=== PATIENT | female | born 1960 | race Caucasian/White ===

== ENCOUNTER 2017-03-06 08:13 | Day surgery (SDC) | payer BC ==
[~2017-03-06] VITALS: Ht 170.2 cm; Wt 97.9 kg
[2017-03-06 09:39] VITALS: Ht 170.2 cm; Wt 97.9 kg
[2017-03-06] MEDS ORDERED: MORP1CAP16 PO (09:51)
[2017-03-06] MEDS ORDERED: MUSCLE RELAXER (09:51)
[2017-03-06] MEDS ORDERED: PROPOFOL 60 ML ONE (10:05)
[2017-03-06] MEDS ORDERED: MIDAZOLAM 1 MG/ML 2 ML INJ ONE (10:06)
[2017-03-06 10:07] VITALS: BP 136/89; PULSE 52; RESP 14
--- NOTE | 2017-03-06 11:01 | GILP ---
DATE OF PROCEDURE: 03/06/2017 PROCEDURE: Screening colonoscopy. PREOPERATIVE DIAGNOSIS: Screening colonoscopy to rule out colon polyps. POSTOPERATIVE DIAGNOSES: Poor preparation, polyps cannot be excluded. DESCRIPTION OF PROCEDURE: After the informed written consent was obtained, the patient was asked to lie on the left lateral side. Intravenous anesthesia was given by anesthesiologist, Dr. Burnett. When the patient became somnolent, the Olympus video colonoscope was introduced into the rectum and scope was advanced all the way to the hepatic flexure. Because of the solid stool scope could not be advanced to the cecum and because of this the scope was withdrawn and the procedure was terminate d. PLAN: Recommend repeat colonoscopy a couple of months. Dictated By: ABDULLAHI FLOREZ/CATHY Conf#: [id number] DID#: [id number] CC: ABDULLAHI YOUNG MD; ;*EndCC*
--- NOTE | 2017-03-06 11:17 | GILP ---
DATE OF PROCEDURE: PROCEDURE: Esophagogastroduodenoscopy. PREOPERATIVE DIAGNOSIS: Patient presenting with history of having melenic stool and she also has go t arthritis, rule out peptic ulcer disease, gastritis, arteriovenous malformation, etc. POSTOPERATIVE DIAGNOSES: 1. Superficial nodular gastritis consistent with H. pylori infection. 2. Mild reflux esophagitis. 3. Mild duodenitis. DESCRIPTION OF PROCEDURE: After informed written consent was obtained, the patient was asked to lie on the left lateral side. Intravenous anesthesia was given by anesthesiologist, ____. When th e patient became somnolent, the Olympus video upper endoscope was introduced into the oropharynx, th en into the esophagus. Esophagus appeared to show evidence of minimal erythema above the GE junctio n indicating mild reflux esophagitis. Scope at this time was advanced into the stomach. Stomach sh owed evidence of cobblestoning mucosal surface in the fundus and the mid body of the stomach, could be consistent with H. pylori infection. Biopsy was done from the antrum, the lesser curvature and t he fundus to rule out H. pylori infection. The postbulbar area of the duodenum showed minimal eryth allen and edema indicating duodenitis. As mentioned earlier on, biopsy was done from the antrum, less er curvature and the fundus to rule out H. pylori infection. Scope at this time was withdrawn and t he procedure was terminated. PLAN: Recommend Omeprazole 40 mg a day for 2 months and meanwhile wait for the pathology report. Dictated By: ABDULLAHI FLOREZ/CATHY Conf#: [id number] DID#: [id number] CC: Larissa Mai;*EndCC*
[2017-03-06 11:22] VITALS: BP 136/90; PULSE 54; RESP 20
== END 2017-03-06 12:56 | disposition home or self-care (01) ==
LOC: GIL 08:13
PROVIDERS: ATTEND Internal Medicine Gastroenterology
DX: Z12.11 Encounter for screening for malignant neoplasm of colon (principal); K29.50 Unspecified chronic gastritis without bleeding; K21.0 Gastro-esophageal reflux disease with esophagitis; K29.80 Duodenitis without bleeding; J45.909 Unspecified asthma, uncomplicated
CPT/HCPCS: 43239; 45378; 88305; 88312; J2250; Z7610